=== PATIENT | female | born 1935 | race Caucasian/White ===

== ENCOUNTER 2016-10-22 13:42 | Outpatient (CLI) | payer MEDICARE ==
[2016-10-22 19:26] LABS: Hemoglobin A1c 5.5 % (4.0-6.0)
[2016-10-22 19:32] LABS: ALT (SGPT) 12 U/L (8-55); AST (SGOT) 21 U/L (5-34); Alkaline Phosphatase 92 U/L (40-150); Anion Gap 17 mmol/L (10-20); BUN (Urea Nitrogen) 37 mg/dL (9.8-20.1); Bilirubin, Direct 0.2 mg/dL (0.1-0.3); Bilirubin, Total 0.4 mg/dL (0.2-1.2); Calc. Creatinine Clearance 0 mL/min (70-130); Calcium 9.2 mg/dL (7.8-10.44); Carbon Dioxide 23 mmol/L (23-31); Cardiac Risk 3.4 (Less than 4.5); Chloride 104 mmol/L (98-107); Cholesterol 189 mg/dl (< 200 Desired); Estimated GFR-MDRD 30; Glucose 100 mg/dL (83-110); HDL Cholesterol 56 mg/dL (>60 Neg Risk); LDL Cholesterol, Calculated 114 mg/dL; Potassium 5.1 mmol/L (3.5-5.1); Protein, Total 6.9 g/dL (6.0-8.3); Sodium 139 mmol/L (136-145); Triglycerides 97 mg/dL (Less than 150)
[2016-10-22 20:21] LABS: #Basophils 0.1 thou/uL (0.0-0.2); #Eosinphils 0.2 thou/uL (0.0-0.7); #Lymphocytes 1.6 thou/uL (1.20-3.40); #Monocytes 0.4 thou/uL (0.11-0.59); #Neutrophils 2.9 thou/uL (1.40-6.50); %Basophils 1.1 % (0.0-1.0); %Eosinophils 4.5 % (0.0-10.0); %Lymphocytes 30.6 % (21.0-51.0); %Monocytes 7.8 % (0.0-10.0); Hemoglobin 11.2 g/dL (12.0-16.0); Mean Corpuscular HGB CONC 32.1 g/dL (32.0-36.0); Mean Corpuscular Hemoglobin 30.1 pg (27.0-31.0); Mean Corpuscular Volume 93.8 fl (81.0-99.0); Mean Platelet Volume 6.4 fL (7.4-10.4); Platelet Count 187 thou/uL (130-400); RBC Distribution Width 12.4 % (11.5-14.5); Red Blood Cell (RBC) Count 3.71 mill/uL (4.20-5.40); White Blood Cell (WBC) Count 5.2 thou/uL (4.8-10.8)
== END 2016-10-22 13:43 | disposition home or self-care (01) ==
LOC: NAVSJIPCSP 13:42
PROVIDERS: ATTEND Family Medicine
DX: E78.2 Mixed hyperlipidemia (principal); I50.9 Heart failure, unspecified; I10 Essential (primary) hypertension; E11.40 Type 2 diabetes mellitus with diabetic neuropathy, unspecified; N28.9 Disorder of kidney and ureter, unspecified; M54.17 Radiculopathy, lumbosacral region; M48.07 Spinal stenosis, lumbosacral region; Z79.899 Other long term (current) drug therapy
CPT/HCPCS: 36415; 80048; 80061; 80076; 83036; 84443; 85025

== ENCOUNTER → 2017-01-15 | Outpatient (CLI) | payer MEDICARE ==
--- NOTE | 2017-01-15 13:25 | RAD ---
LUMBAR SPINE SERIES THREE VIEWS: History: Right leg radiculopathy. FINDINGS: There is severe arthritic change in the spine. There is marked disc narrowing and vacuum disc phenom enon at L3-4 and L4-5. Less pronounced disc narrowing is seen at L2-3 and L5-S1 levels. Vertebroplas ty changes related to pronounced compression fracture of L1 is noted. Severe scoliotic deformity to the spine, convex to the left. Post op laminectomy changes are seen at L4. IMPRESSION: 1. Scoliosis with marked arthritic changes of the spine and post-operative changes of the spine as d iscussed above. 2. Incidental note is made of a round calcification seen in the left side of the pelvis. I am not ce rtain of the exact location of this. It has a shape that raises the possibility of a bladder calculu s. POS: OFF
== END ==
LOC: NAV RAD 10:50
PROVIDERS: ATTEND Family Medicine
DX: M54.17 Radiculopathy, lumbosacral region (principal); M47.816 Spondylosis without myelopathy or radiculopathy, lumbar region
CPT/HCPCS: 72100

== ENCOUNTER 2017-04-25 11:50 | Outpatient (CLI) | payer MEDICARE ==
--- NOTE | 2017-04-25 13:00 | RAD ---
TWO VIEWS LUMBAR SPINE: DATE: 04/25/17. HISTORY: Lumbosacral radiculopathy. COMPARISON: 01/15/17. FINDINGS: Flexion and extension views of the lumbar spine are obtained. As noted on the prior views of the lum bar spine, there are vertebroplasty changes involving a severe wedge-shaped compression fracture of t he L1 vertebral body which is stable in appearance compared to the prior study. There is exaggerated kyphosis at this level. There are mild multilevel degenerative changes in the lumbar spine with sca ttered osteophytes present. Facet degenerative changes are seen in the lumbar spine. The remaining vertebral body heights in the lumbar spine are within normal limits and no subluxation is seen on thi s exam. Vascular calcifications are seen in the abdominal aorta. IMPRESSION: 1. No evidence of a subluxation involving the lumbar spine. 2. Stable vertebroplasty changes involving a severe compression fracture of the L1 vertebral body wi th exaggerated kyphosis at this level. 3. Degenerative changes in the lumbar spine. POS: ANGELES
== END 2017-04-25 11:51 | disposition home or self-care (01) ==
LOC: NAV RAD 11:50
PROVIDERS: ATTEND Neurological Surgery
DX: M47.26 Other spondylosis with radiculopathy, lumbar region (principal); M40.295 Other kyphosis, thoracolumbar region; Z98.890 Other specified postprocedural states
CPT/HCPCS: 72100

== ENCOUNTER 2018-02-05 12:31 | Emergency (ER) | payer MEDICARE ==
--- NOTE | 2018-02-05 14:21 | CT ---
CT BRAIN: Date: 02/05/18 HISTORY: Fall, struck back of head on chair. 83-year-old female. TECHNIQUE: Noncontrast enhanced CT images of brain obtained from the base of the skull through the vertex. Brain and bone windows are obtained. FINDINGS: CT images of the brain demonstrate interval development of opacification of the right frontal sinus a nd right anterior ethmoid sinuses. This is compatible with sinusitis. A small right posterior parieta l scalp hematoma is seen. No evidence of intracranial masses, hemorrhages or strokes seen. The ventricles are of normal size. C ortical atrophy and deep white matter ischemic change is seen. IMPRESSION: No evidence of acute intracranial traumatic change is seen. Right frontal and ethmoid sinus mucosal t hickening seen. POS: H
== END 2018-02-05 13:50 | disposition home or self-care (01) ==
LOC: NAV ERS 12:31
DX: S00.03XA Contusion of scalp, initial encounter (principal); I11.0 Hypertensive heart disease with heart failure; I50.9 Heart failure, unspecified; E11.9 Type 2 diabetes mellitus without complications; E78.5 Hyperlipidemia, unspecified; F32.9 Major depressive disorder, single episode, unspecified; M19.90 Unspecified osteoarthritis, unspecified site; I25.10 Atherosclerotic heart disease of native coronary artery without angina pectoris; Z79.82 Long term (current) use of aspirin; Z79.84 Long term (current) use of oral hypoglycemic drugs; Z79.899 Other long term (current) drug therapy; W01.190A Fall on same level from slipping, tripping and stumbling with subsequent striking against furniture, initial encounter
CPT/HCPCS: 70450

== ENCOUNTER 2019-01-06 15:21 | Outpatient (CLI) | payer MEDICARE ==
--- NOTE | 2019-01-06 17:16 | ULT ---
RENAL ULTRASOUND: 01/06/19 INDICATIONS: Chronic kidney disease. Both kidneys measure approximately 8.5 cm in length. There is mild cortical thinning bilaterally. Cor tical echogenicity is upper normal. No hydronephrosis. 1 cm cyst in the superior left kidney and 0.7 cm cyst from the inferior left kidney. The bladder is empty and not evaluated. IMPRESSION: Mild cortical thinning and small left renal cyst as described. POS: OFF
== END 2019-01-06 15:22 | disposition home or self-care (01) ==
LOC: NAV ULT 15:21
PROVIDERS: ATTEND Internal Medicine Nephrology
DX: N18.4 Chronic kidney disease, stage 4 (severe) (principal); N28.1 Cyst of kidney, acquired; N28.89 Other specified disorders of kidney and ureter
CPT/HCPCS: 76770

== ENCOUNTER 2021-02-27 08:12 | Emergency (ER) | payer OTHER, MEDICARE ==
[2021-02-27] MEDS ORDERED: Boostrix 0.5 ML (Tdap) VIAL ONE (09:13)
== END 2021-02-27 09:35 | disposition home or self-care (01) ==
LOC: NAV ERS 08:12
DX: S00.83XA Contusion of other part of head, initial encounter (principal); M25.561 Pain in right knee; M25.562 Pain in left knee; I11.0 Hypertensive heart disease with heart failure; I50.9 Heart failure, unspecified; I25.10 Atherosclerotic heart disease of native coronary artery without angina pectoris; E11.9 Type 2 diabetes mellitus without complications; E78.5 Hyperlipidemia, unspecified; E78.00 Pure hypercholesterolemia, unspecified; M19.90 Unspecified osteoarthritis, unspecified site; Z79.82 Long term (current) use of aspirin; Z79.899 Other long term (current) drug therapy; W22.01XA Walked into wall, initial encounter
CPT/HCPCS: 70450; 90471; 90715

== ENCOUNTER 2021-12-21 08:07 | Outpatient (CLI) | payer MEDICARE | END 2021-12-21 08:08 | disposition home or self-care (01) | LOC: NAV RAD 08:07 | PROVIDERS: ATTEND Family Medicine | DX: M25.511 Pain in right shoulder (principal) ==

== ENCOUNTER 2022-10-21 14:35 | Inpatient (IN) | payer MEDICARE ==
[2022-10-21] MEDS ORDERED: Benzonatate 100 MG CAP PO PRN (15:58)
[2022-10-21] MEDS ORDERED: Dextrose 50% Abboject 50 ML SYRINGE SLOW IVP PRN (15:58)
[2022-10-21] MEDS ORDERED: Glucagon 1 MG/ML KIT IM PRN (15:58)
[2022-10-21] MEDS ORDERED: Sodium Chloride 0.65% Nasal 44 ML BOT EA NARE PRN (15:58)
[2022-10-21] MEDS ORDERED: Acetaminophen 650 MG Suppository PR PRN (15:58)
[2022-10-21] MEDS ORDERED: Calcium Carbonate 500 MG ChewTAB PO PRN (15:58)
[2022-10-21] MEDS ORDERED: Benzocaine/Menthol 1 LOZ LOZ PO PRN (15:58)
[2022-10-21] MEDS ORDERED: Senokot S 8.6-50 MG TAB PO PRN (15:58)
[2022-10-21] MEDS ORDERED: Bisacodyl 10 MG SUPP PR PRN (15:58)
[2022-10-21] MEDS ORDERED: Ondansetron ODT 4 MG TAB PO PRN (15:58)
[2022-10-21] MEDS ORDERED: Artificial Tear Sol 15 ML BOT EA EYE PRN (15:58)
[2022-10-21] MEDS ORDERED: Bisacodyl 5 MG TAB PO PRN (15:58)
[2022-10-21] MEDS ORDERED: Sertraline 100 MG TAB PO SCH ×2 (16:00→20:00)
[2022-10-21] MEDS: Atorvastatin Calcium 10 MG TAB PO SCH (22:03)
[2022-10-21] MEDS: Cefdinir 300 MG CAP PO SCH (22:03)
[2022-10-21] MEDS: Carvedilol 3.125 MG TAB PO SCH (22:03)
[2022-10-22 06:14] LABS: #Basophils 0.1 thou/uL (0.0-0.2); #Eosinphils 0.2 thou/uL (0.0-0.7); #Lymphocytes 1.3 thou/uL (1.20-3.40); #Monocytes 0.6 thou/uL (0.11-0.59); #Neutrophils 6.3 thou/uL (1.40-6.50); %Basophils 0.6 % (0.0-1.0); %Lymphocytes 15.3 % (21.0-51.0); %Monocytes 7.5 % (0.0-10.0); %Neutrophils 74.5 % (42.0-75.0); Hemoglobin 8.6 g/dL (12.0-16.0); Mean Corpuscular HGB CONC 33.1 g/dL (32.0-36.0); Mean Corpuscular Hemoglobin 31.5 pg (27.0-31.0); Mean Corpuscular Volume 95.1 fl (78.0-98.0); Mean Platelet Volume 6.2 fL (7.4-10.4); Platelet Count 156 10x3/uL (130-400); RBC Distribution Width 12.2 % (11.5-14.5); Red Blood Cell (RBC) Count 2.75 mill/uL (4.20-5.40); White Blood Cell (WBC) Count 8.5 10x3/uL (4.8-10.8)
[2022-10-22 06:31] LABS: ALT (SGPT) 17 U/L (8-55); AST (SGOT) 24 U/L (5-34); Albumin 3.1 g/dL (3.4-4.8); Alkaline Phosphatase 68 U/L (40-110); Anion Gap 16 mmol/L (10-20); BUN (Urea Nitrogen) 33 mg/dL (9.8-20.1); Bilirubin, Total 0.4 mg/dL (0.2-1.2); Calc. Creatinine Clearance 32 mL/min (70-130); Calcium 8.9 mg/dL (7.8-10.44); Carbon Dioxide 18 mmol/L (23-31); Chloride 108 mmol/L (98-107); Estimated GFR 26; Globulin 2.6 g/dL (2.4-3.5); Glucose 105 mg/dL (83-110); Potassium 3.8 mmol/L (3.5-5.1); Protein, Total 5.7 g/dL (5.8-8.1); Sodium 138 mmol/L (136-145)
[2022-10-22] MEDS: Aspirin 81 mg Enteric Coated Tablet PO SCH (08:17)
[2022-10-22] MEDS: Cefdinir 300 MG CAP PO SCH ×2 (08:17→21:15)
[2022-10-22] MEDS: Alogliptin 6.25 MG TAB PO SCH (08:18)
[2022-10-22] MEDS: Furosemide 40 MG TAB PO SCH (08:24)
[2022-10-22] MEDS: Carvedilol 3.125 MG TAB PO SCH ×2 (08:24→21:15)
[2022-10-22] MEDS: Losartan 25 MG TAB PO SCH (08:24)
[2022-10-22] MEDS ORDERED: Alogliptin 6.25 MG TAB PO SCH (09:00)
[2022-10-22] MEDS: Atorvastatin Calcium 10 MG TAB PO SCH (21:15)
[2022-10-23] MEDS: Cefdinir 300 MG CAP PO SCH ×2 (08:29→20:34)
[2022-10-23] MEDS: Losartan 25 MG TAB PO SCH (08:29)
[2022-10-23] MEDS: Alogliptin 6.25 MG TAB PO SCH (08:30)
[2022-10-23] MEDS: Carvedilol 3.125 MG TAB PO SCH ×2 (08:30→20:35)
[2022-10-23] MEDS: Aspirin 81 mg Enteric Coated Tablet PO SCH (08:30)
[2022-10-23] MEDS: Furosemide 40 MG TAB PO SCH (08:30)
[2022-10-23] MEDS: Sertraline 100 MG TAB PO SCH (08:57)
[2022-10-23] MEDS: Acetaminophen 325 MG TAB PO PRN (09:55)
[2022-10-23] MEDS: Atorvastatin Calcium 10 MG TAB PO SCH (20:35)
[2022-10-24] MEDS: Losartan 25 MG TAB PO SCH (09:40)
[2022-10-24] MEDS: Cefdinir 300 MG CAP PO SCH ×2 (09:40→20:53)
[2022-10-24] MEDS: Carvedilol 3.125 MG TAB PO SCH ×2 (09:41→20:53)
[2022-10-24] MEDS: Alogliptin 6.25 MG TAB PO SCH (09:41)
[2022-10-24] MEDS: Aspirin 81 mg Enteric Coated Tablet PO SCH (09:41)
[2022-10-24] MEDS: Furosemide 40 MG TAB PO SCH (09:41)
[2022-10-24] MEDS: Saccharomyces boulardii 250 MG CAP PO SCH (09:41)
[2022-10-24] MEDS: Atorvastatin Calcium 10 MG TAB PO SCH (20:53)
[2022-10-25] MEDS: Acetaminophen 325 MG TAB PO PRN ×2 (00:34→09:52)
[2022-10-25] MEDS: Saccharomyces boulardii 250 MG CAP PO SCH (09:51)
[2022-10-25] MEDS: Furosemide 40 MG TAB PO SCH (09:55)
[2022-10-25] MEDS: Alogliptin 6.25 MG TAB PO SCH (09:55)
[2022-10-25] MEDS: Losartan 25 MG TAB PO SCH (09:56)
[2022-10-25] MEDS: Carvedilol 3.125 MG TAB PO SCH ×2 (09:56→21:15)
[2022-10-25] MEDS: Aspirin 81 mg Enteric Coated Tablet PO SCH (09:56)
[2022-10-25] MEDS: Sertraline 100 MG TAB PO SCH (10:02)
[2022-10-25] MEDS ORDERED: predniSONE 20 MG TAB PO SCH (14:15)
[2022-10-25] MEDS: Atorvastatin Calcium 10 MG TAB PO SCH (21:15)
[2022-10-26] MEDS: Losartan 25 MG TAB PO SCH (09:32)
[2022-10-26] MEDS: Saccharomyces boulardii 250 MG CAP PO SCH (09:33)
[2022-10-26] MEDS: Furosemide 40 MG TAB PO SCH (09:33)
[2022-10-26] MEDS: Aspirin 81 mg Enteric Coated Tablet PO SCH (09:33)
[2022-10-26] MEDS: Carvedilol 3.125 MG TAB PO SCH ×2 (09:34→20:14)
[2022-10-26] MEDS: predniSONE 20 MG TAB PO SCH (09:34)
[2022-10-26] MEDS: Alogliptin 6.25 MG TAB PO SCH (09:35)
[2022-10-26] MEDS ORDERED: traMADol HCl 50 MG TAB PO PRN (11:26)
[2022-10-26] MEDS: HumaLOG 300 UNITS/3 ML VIAL SC PRN ×2 (12:57→17:44)
[2022-10-26] MEDS: Atorvastatin Calcium 10 MG TAB PO SCH (20:14)
[2022-10-26] MEDS: Acetaminophen 325 MG TAB PO PRN (20:14)
[2022-10-27 05:24] LABS: #Lymphocytes 1.2 thou/uL (1.20-3.40); #Monocytes 0.4 thou/uL (0.11-0.59); #Neutrophils 7.7 thou/uL (1.40-6.50); %Basophils 0.2 % (0.0-1.0); %Lymphocytes 12.5 % (21.0-51.0); %Monocytes 4.2 % (0.0-10.0); Hemoglobin 8.2 g/dL (12.0-16.0); Manual Diff?? NO; Mean Corpuscular HGB CONC 33.9 g/dL (32.0-36.0); Mean Corpuscular Hemoglobin 31.8 pg (27.0-31.0); Mean Corpuscular Volume 93.8 fl (78.0-98.0); Mean Platelet Volume 6.1 fL (7.4-10.4); Platelet Count 231 10x3/uL (130-400); RBC Distribution Width 11.9 % (11.5-14.5); Red Blood Cell (RBC) Count 2.57 mill/uL (4.20-5.40); White Blood Cell (WBC) Count 9.3 10x3/uL (4.8-10.8)
[2022-10-27 05:33] LABS: Carbon Dioxide 24 mmol/L (23-31)
[2022-10-27 05:34] LABS: Anion Gap 14 mmol/L (10-20); BUN (Urea Nitrogen) 41 mg/dL (9.8-20.1); Calc. Creatinine Clearance 33 mL/min (70-130); Calcium 9.1 mg/dL (7.8-10.44); Chloride 106 mmol/L (98-107); Estimated GFR 27; Glucose 136 mg/dL (83-110); Potassium 3.6 mmol/L (3.5-5.1); Sodium 140 mmol/L (136-145)
[2022-10-27] MEDS: Alogliptin 6.25 MG TAB PO SCH (08:56)
[2022-10-27] MEDS: predniSONE 20 MG TAB PO SCH (08:57)
[2022-10-27] MEDS: Saccharomyces boulardii 250 MG CAP PO SCH (08:57)
[2022-10-27] MEDS: Carvedilol 3.125 MG TAB PO SCH ×2 (08:57→20:44)
[2022-10-27] MEDS: Furosemide 40 MG TAB PO SCH (08:58)
[2022-10-27] MEDS: Losartan 25 MG TAB PO SCH (08:58)
[2022-10-27] MEDS: Aspirin 81 mg Enteric Coated Tablet PO SCH (08:58)
[2022-10-27] MEDS: Sertraline 100 MG TAB PO SCH (09:01)
[2022-10-27] MEDS: HumaLOG 300 UNITS/3 ML VIAL SC PRN (17:03)
[2022-10-27] MEDS: Acetaminophen 325 MG TAB PO PRN (20:42)
[2022-10-27] MEDS: Atorvastatin Calcium 10 MG TAB PO SCH (20:42)
[2022-10-28] MEDS: predniSONE 20 MG TAB PO SCH (08:54)
[2022-10-28] MEDS: Saccharomyces boulardii 250 MG CAP PO SCH (08:55)
[2022-10-28] MEDS: Aspirin 81 mg Enteric Coated Tablet PO SCH (08:55)
[2022-10-28] MEDS: Carvedilol 3.125 MG TAB PO SCH ×2 (08:55→20:31)
[2022-10-28] MEDS: Furosemide 40 MG TAB PO SCH (08:56)
[2022-10-28] MEDS: Alogliptin 6.25 MG TAB PO SCH (08:56)
[2022-10-28 09:04] LABS: #Lymphocytes 2.2 thou/uL (1.20-3.40); #Monocytes 0.5 thou/uL (0.11-0.59); %Basophils 0.5 % (0.0-1.0); %Eosinophils 0.1 % (0.0-10.0); %Monocytes 5.6 % (0.0-10.0); %Neutrophils 68.8 % (42.0-75.0); Mean Corpuscular HGB CONC 32.7 g/dL (32.0-36.0); Mean Corpuscular Hemoglobin 30.9 pg (27.0-31.0); Mean Corpuscular Volume 94.4 fl (78.0-98.0); Mean Platelet Volume 5.9 fL (7.4-10.4); Platelet Count 295 10x3/uL (130-400); Red Blood Cell (RBC) Count 2.91 mill/uL (4.20-5.40); White Blood Cell (WBC) Count 8.8 10x3/uL (4.8-10.8)
[2022-10-28 09:17] LABS: Anion Gap 12 mmol/L (10-20); BUN (Urea Nitrogen) 47 mg/dL (9.8-20.1); Calc. Creatinine Clearance 32 mL/min (70-130); Calcium 9.2 mg/dL (7.8-10.44); Carbon Dioxide 29 mmol/L (23-31); Chloride 101 mmol/L (98-107); Estimated GFR 26; Glucose 118 mg/dL (83-110); Potassium 3.3 mmol/L (3.5-5.1); Sodium 139 mmol/L (136-145)
[2022-10-28] MEDS ORDERED: Losartan Potassium 50 MG TAB PO SCH (10:15)
[2022-10-28] MEDS: Losartan 25 MG TAB PO SCH (10:27)
[2022-10-28] MEDS: Acetaminophen 325 MG TAB PO PRN ×2 (11:49→20:30)
[2022-10-28] MEDS: HumaLOG 300 UNITS/3 ML VIAL SC PRN ×2 (12:39→17:14)
[2022-10-28] MEDS: Atorvastatin Calcium 10 MG TAB PO SCH (20:31)
[2022-10-29] MEDS: predniSONE 20 MG TAB PO SCH (08:59)
[2022-10-29] MEDS: Sertraline 100 MG TAB PO SCH (09:00)
[2022-10-29] MEDS: Aspirin 81 mg Enteric Coated Tablet PO SCH (09:00)
[2022-10-29] MEDS: Losartan Potassium 50 MG TAB PO SCH (09:00)
[2022-10-29] MEDS: Alogliptin 6.25 MG TAB PO SCH (09:00)
[2022-10-29] MEDS: Furosemide 40 MG TAB PO SCH (09:00)
[2022-10-29] MEDS: Carvedilol 3.125 MG TAB PO SCH ×2 (09:00→20:23)
[2022-10-29] MEDS: Saccharomyces boulardii 250 MG CAP PO SCH (09:00)
[2022-10-29] MEDS: HumaLOG 300 UNITS/3 ML VIAL SC PRN (17:08)
[2022-10-29] MEDS: Atorvastatin Calcium 10 MG TAB PO SCH (20:22)
[2022-10-29] MEDS: Acetaminophen 325 MG TAB PO PRN (20:23)
[2022-10-30] MEDS: Saccharomyces boulardii 250 MG CAP PO SCH (08:50)
[2022-10-30] MEDS: Carvedilol 3.125 MG TAB PO SCH ×2 (08:50→21:04)
[2022-10-30] MEDS: Alogliptin 6.25 MG TAB PO SCH (08:50)
[2022-10-30] MEDS: predniSONE 20 MG TAB PO SCH (08:51)
[2022-10-30] MEDS: Losartan Potassium 50 MG TAB PO SCH (08:51)
[2022-10-30] MEDS: Furosemide 40 MG TAB PO SCH (08:52)
[2022-10-30] MEDS: Aspirin 81 mg Enteric Coated Tablet PO SCH (08:52)
[2022-10-30] MEDS: HumaLOG 300 UNITS/3 ML VIAL SC PRN (17:19)
[2022-10-30] MEDS: Atorvastatin Calcium 10 MG TAB PO SCH (21:04)
[2022-10-30] MEDS: Acetaminophen 325 MG TAB PO PRN (21:04)
[2022-10-31] MEDS: Carvedilol 3.125 MG TAB PO SCH ×2 (08:01→21:02)
[2022-10-31] MEDS: Losartan Potassium 50 MG TAB PO SCH (08:01)
[2022-10-31] MEDS: Furosemide 40 MG TAB PO SCH (08:01)
[2022-10-31] MEDS: Aspirin 81 mg Enteric Coated Tablet PO SCH (08:01)
[2022-10-31] MEDS: Alogliptin 6.25 MG TAB PO SCH (08:01)
[2022-10-31] MEDS: Saccharomyces boulardii 250 MG CAP PO SCH (08:01)
[2022-10-31] MEDS: Sertraline 100 MG TAB PO SCH (08:04)
[2022-10-31] MEDS: Acetaminophen 325 MG TAB PO PRN (15:27)
[2022-10-31] MEDS: Atorvastatin Calcium 10 MG TAB PO SCH (21:02)
[2022-11-01] MEDS: Acetaminophen 325 MG TAB PO PRN ×2 (03:44→10:01)
[2022-11-01] MEDS: Saccharomyces boulardii 250 MG CAP PO SCH (09:11)
[2022-11-01] MEDS: Alogliptin 6.25 MG TAB PO SCH (09:11)
[2022-11-01] MEDS: Furosemide 40 MG TAB PO SCH (09:11)
[2022-11-01] MEDS: Aspirin 81 mg Enteric Coated Tablet PO SCH (09:11)
[2022-11-01] MEDS: Losartan Potassium 50 MG TAB PO SCH (09:11)
[2022-11-01] MEDS: Carvedilol 3.125 MG TAB PO SCH ×2 (09:11→20:52)
[2022-11-01] MEDS ORDERED: HumaLOG 300 UNITS/3 ML VIAL SC PRN (20:00)
[2022-11-01] MEDS: Atorvastatin Calcium 10 MG TAB PO SCH (20:52)
[2022-11-02] MEDS: Carvedilol 3.125 MG TAB PO SCH ×2 (09:58→20:53)
[2022-11-02] MEDS: Acetaminophen 325 MG TAB PO PRN (09:58)
[2022-11-02] MEDS: Alogliptin 6.25 MG TAB PO SCH (09:58)
[2022-11-02] MEDS: Aspirin 81 mg Enteric Coated Tablet PO SCH (09:59)
[2022-11-02] MEDS: Furosemide 40 MG TAB PO SCH (10:00)
[2022-11-02] MEDS: Losartan Potassium 50 MG TAB PO SCH (10:00)
[2022-11-02] MEDS: Saccharomyces boulardii 250 MG CAP PO SCH (10:00)
[2022-11-02] MEDS: Sertraline 100 MG TAB PO SCH (10:09)
[2022-11-02] MEDS: Atorvastatin Calcium 10 MG TAB PO SCH (20:53)
[2022-11-03 05:29] LABS: #Basophils 0.1 thou/uL (0.0-0.2); #Eosinphils 0.2 thou/uL (0.0-0.7); #Lymphocytes 2.1 thou/uL (1.20-3.40); #Monocytes 0.5 thou/uL (0.11-0.59); #Neutrophils 3.8 thou/uL (1.40-6.50); %Basophils 0.8 % (0.0-1.0); %Lymphocytes 31.3 % (21.0-51.0); %Monocytes 7.2 % (0.0-10.0); %Neutrophils 57.7 % (42.0-75.0); Mean Corpuscular HGB CONC 32.8 g/dL (32.0-36.0); Mean Corpuscular Hemoglobin 31.2 pg (27.0-31.0); Mean Corpuscular Volume 95.1 fl (78.0-98.0); Mean Platelet Volume 6.8 fL (7.4-10.4); Platelet Count 196 10x3/uL (130-400); RBC Distribution Width 12.4 % (11.5-14.5); Red Blood Cell (RBC) Count 2.89 mill/uL (4.20-5.40); White Blood Cell (WBC) Count 6.6 10x3/uL (4.8-10.8)
[2022-11-03 05:47] LABS: Anion Gap 12 mmol/L (10-20); BUN (Urea Nitrogen) 51 mg/dL (9.8-20.1); Calc. Creatinine Clearance 24 mL/min (70-130); Calcium 8.7 mg/dL (7.8-10.44); Carbon Dioxide 30 mmol/L (23-31); Chloride 104 mmol/L (98-107); Estimated GFR 19; Glucose 121 mg/dL (83-110); Magnesium 1.8 mg/dL (1.6-2.6); Potassium 3.7 mmol/L (3.5-5.1); Sodium 142 mmol/L (136-145)
[2022-11-03] MEDS: Furosemide 40 MG TAB PO SCH (09:26)
[2022-11-03] MEDS: Alogliptin 6.25 MG TAB PO SCH (09:27)
[2022-11-03] MEDS: Saccharomyces boulardii 250 MG CAP PO SCH (09:27)
[2022-11-03] MEDS: Carvedilol 3.125 MG TAB PO SCH ×2 (09:27→20:28)
[2022-11-03] MEDS: Losartan Potassium 50 MG TAB PO SCH (09:27)
[2022-11-03] MEDS: Aspirin 81 mg Enteric Coated Tablet PO SCH (09:27)
[2022-11-03] MEDS: Potassium Chloride 20 MEQ TAB PO SCH (09:33)
[2022-11-03] MEDS: Acetaminophen 325 MG TAB PO PRN (09:34)
[2022-11-03] MEDS: Atorvastatin Calcium 10 MG TAB PO SCH (20:26)
[2022-11-04 05:49] LABS: #Eosinphils 0.2 thou/uL (0.0-0.7); #Lymphocytes 1.7 thou/uL (1.20-3.40); #Monocytes 0.4 thou/uL (0.11-0.59); #Neutrophils 3.3 thou/uL (1.40-6.50); %Basophils 0.8 % (0.0-1.0); %Eosinophils 3.7 % (0.0-10.0); %Lymphocytes 29.4 % (21.0-51.0); %Monocytes 7.3 % (0.0-10.0); %Neutrophils 58.8 % (42.0-75.0); Hemoglobin 8.5 g/dL (12.0-16.0); Mean Corpuscular HGB CONC 33.2 g/dL (32.0-36.0); Mean Corpuscular Hemoglobin 31.7 pg (27.0-31.0); Mean Corpuscular Volume 95.3 fl (78.0-98.0); Mean Platelet Volume 6.4 fL (7.4-10.4); Platelet Count 172 10x3/uL (130-400); RBC Distribution Width 12.4 % (11.5-14.5); White Blood Cell (WBC) Count 5.6 10x3/uL (4.8-10.8)
[2022-11-04 06:01] LABS: Anion Gap 12 mmol/L (10-20); BUN (Urea Nitrogen) 45 mg/dL (9.8-20.1); Calc. Creatinine Clearance 26 mL/min (70-130); Calcium 8.8 mg/dL (7.8-10.44); Carbon Dioxide 28 mmol/L (23-31); Chloride 103 mmol/L (98-107); Estimated GFR 21; Glucose 116 mg/dL (83-110); Sodium 139 mmol/L (136-145)
[2022-11-04] MEDS: Saccharomyces boulardii 250 MG CAP PO SCH (08:42)
[2022-11-04] MEDS: Carvedilol 3.125 MG TAB PO SCH ×2 (08:42→20:54)
[2022-11-04] MEDS: Losartan Potassium 50 MG TAB PO SCH (08:43)
[2022-11-04] MEDS: Furosemide 40 MG TAB PO SCH (08:43)
[2022-11-04] MEDS: Alogliptin 6.25 MG TAB PO SCH (08:43)
[2022-11-04] MEDS: Sertraline 100 MG TAB PO SCH (08:43)
[2022-11-04] MEDS: Potassium Chloride 20 MEQ TAB PO SCH (08:44)
[2022-11-04] MEDS: Aspirin 81 mg Enteric Coated Tablet PO SCH (08:44)
[2022-11-04] MEDS: Acetaminophen 325 MG TAB PO PRN ×2 (08:44→16:41)
[2022-11-04 16:45] VITALS: BMI 31.6
[2022-11-04] MEDS: Atorvastatin Calcium 10 MG TAB PO SCH (20:54)
[2022-11-05] MEDS: Acetaminophen 325 MG TAB PO PRN ×2 (07:51→14:31)
[2022-11-05] MEDS: Carvedilol 3.125 MG TAB PO SCH ×2 (09:40→21:14)
[2022-11-05] MEDS: Saccharomyces boulardii 250 MG CAP PO SCH (09:40)
[2022-11-05] MEDS: Aspirin 81 mg Enteric Coated Tablet PO SCH (09:40)
[2022-11-05] MEDS: Losartan Potassium 50 MG TAB PO SCH (09:40)
[2022-11-05] MEDS: Alogliptin 6.25 MG TAB PO SCH (09:41)
[2022-11-05] MEDS: Furosemide 40 MG TAB PO SCH (09:41)
[2022-11-05] MEDS: Atorvastatin Calcium 10 MG TAB PO SCH (21:14)
[2022-11-06] MEDS: Saccharomyces boulardii 250 MG CAP PO SCH (09:12)
[2022-11-06] MEDS: Furosemide 40 MG TAB PO SCH (09:13)
[2022-11-06] MEDS: Aspirin 81 mg Enteric Coated Tablet PO SCH (09:13)
[2022-11-06] MEDS: Alogliptin 6.25 MG TAB PO SCH (09:13)
[2022-11-06] MEDS: Losartan Potassium 50 MG TAB PO SCH (09:13)
[2022-11-06] MEDS: Carvedilol 3.125 MG TAB PO SCH ×2 (09:14→21:33)
[2022-11-06] MEDS: Sertraline 100 MG TAB PO SCH (09:16)
[2022-11-06] MEDS: Acetaminophen 325 MG TAB PO PRN (12:13)
[2022-11-06] MEDS: Atorvastatin Calcium 10 MG TAB PO SCH (21:33)
[2022-11-07] MEDS: Furosemide 40 MG TAB PO SCH (09:22)
[2022-11-07] MEDS: Saccharomyces boulardii 250 MG CAP PO SCH (09:22)
[2022-11-07] MEDS: Aspirin 81 mg Enteric Coated Tablet PO SCH (09:23)
[2022-11-07] MEDS: Alogliptin 6.25 MG TAB PO SCH (09:23)
[2022-11-07] MEDS: Carvedilol 3.125 MG TAB PO SCH (09:23)
[2022-11-07] MEDS: Losartan Potassium 50 MG TAB PO SCH (09:23)
[2022-11-07 09:45] VITALS: BP 119/69; TEMP 98.7
== END 2022-11-07 13:50 | disposition home health service (06) | DRG 560 ==
LOC: NAV ACUTE 17:45
PROVIDERS: ADMIT Family Medicine; ATTEND Family Medicine
DX: S32.029D Unspecified fracture of second lumbar vertebra, subsequent encounter for fracture with routine healing (principal); I13.0 Hypertensive heart and chronic kidney disease with heart failure and stage 1 through stage 4 chronic kidney disease, or unspecified chronic kidney disease; I50.32 Chronic diastolic (congestive) heart failure; N18.4 Chronic kidney disease, stage 4 (severe); R53.1 Weakness; I25.10 Atherosclerotic heart disease of native coronary artery without angina pectoris; E78.5 Hyperlipidemia, unspecified; R55 Syncope and collapse; E11.65 Type 2 diabetes mellitus with hyperglycemia; R19.7 Diarrhea, unspecified; M10.9 Gout, unspecified; E11.22 Type 2 diabetes mellitus with diabetic chronic kidney disease; Z88.0 Allergy status to penicillin; Z88.8 Allergy status to other drugs, medicaments and biological substances; Z79.82 Long term (current) use of aspirin; Z90.710 Acquired absence of both cervix and uterus; Z98.890 Other specified postprocedural states; Z90.49 Acquired absence of other specified parts of digestive tract; Z79.899 Other long term (current) drug therapy
CPT/HCPCS: 36415; 36416; 72100; 72131; 80048; 80053; 83735; 84550; 85025; 85652; 86140; J1650; J1815; J7512

== ENCOUNTER 2023-03-10 12:51 | Inpatient (IN) | payer MEDICARE ==
[2023-03-10 13:21] LABS: #Eosinphils 0.1 thou/uL (0.0-0.7); #Lymphocytes 1.6 thou/uL (1.20-3.40); #Monocytes 0.5 thou/uL (0.11-0.59); #Neutrophils 2.3 thou/uL (1.40-6.50); %Eosinophils 1.3 % (0.0-10.0); %Lymphocytes 36.1 % (21.0-51.0); %Monocytes 10.3 % (0.0-10.0); %Neutrophils 51.3 % (42.0-75.0); Hemoglobin 10.2 g/dL (12.0-16.0); Mean Corpuscular Hemoglobin 31.7 pg (27.0-31.0); Mean Corpuscular Volume 96.2 fl (78.0-98.0); Mean Platelet Volume 7.2 fL (7.4-10.4); Platelet Count 134 10x3/uL (130-400); RBC Distribution Width 12.7 % (11.5-14.5); Red Blood Cell (RBC) Count 3.22 mill/uL (4.20-5.40); White Blood Cell (WBC) Count 4.5 10x3/uL (4.8-10.8)
[2023-03-10 13:47] LABS: Troponin I 0.075 ng/mL (< 0.028)
[2023-03-10 13:49] LABS: ALT (SGPT) 25 U/L (8-55); AST (SGOT) 47 U/L (5-34); Albumin 3.6 g/dL (3.4-4.8); Alkaline Phosphatase 75 U/L (40-110); Anion Gap 17 mmol/L (10-20); BUN (Urea Nitrogen) 35 mg/dL (9.8-20.1); Bilirubin, Total 0.4 mg/dL (0.2-1.2); Calc. Creatinine Clearance 0 mL/min (70-130); Calcium 8.7 mg/dL (7.8-10.44); Carbon Dioxide 23 mmol/L (23-31); Chloride 98 mmol/L (98-107); Estimated GFR 20; Globulin 2.5 g/dL (2.4-3.5); Glucose 118 mg/dL (83-110); Potassium 4.1 mmol/L (3.5-5.1); Protein, Total 6.1 g/dL (5.8-8.1); Sodium 134 mmol/L (136-145)
[2023-03-10 14:22] LABS: SARS-CoV-2 NAA Rapid Test DETECTED (NotDetected)
[2023-03-10 15:08] LABS: Bilirubin Negative (Negative); Blood, Urine Trace (Negative); Glucose, Urine (Dipstick) Negative (Negative); Ketone, Urine Negative (Negative); Leukocyte Negative (Negative); Nitrite Negative (Negative); Protein, Urine (Dipstick) Negative (Neg-Trace); Specific Gravity, Urine 1.015 (1.005-1.030); Urobilinogen 0.2 mg/dL (Less than 2); pH, Urine 5.5 (5.0-9.0)
[2023-03-10 15:10] LABS: Clarity Hazy (Clear)
[2023-03-10 15:15] LABS: CAUTI Indications for Culture Alt mental st,lethar; RBC/HPF 0-3 HPF (0-3); Squamous Epithelial 0-3 HPF (0-3); WBC/HPF None Seen HPF (0-3)
[2023-03-10 15:16] LABS: Urine Culture Reflex No No
[2023-03-10] MEDS ORDERED: Sodium Chloride 0.9% 1,000 ML ONE (16:30)
[2023-03-10] MEDS ORDERED: Benzocaine/Menthol 1 LOZ LOZ PO PRN (18:32)
[2023-03-10] MEDS ORDERED: Acetaminophen 325 MG TAB PO PRN (18:32)
[2023-03-10] MEDS ORDERED: Artificial Tear Sol 15 ML BOT EA EYE PRN (18:32)
[2023-03-10] MEDS ORDERED: cloNIDine 0.1 MG TAB PO PRN (18:32)
[2023-03-10] MEDS ORDERED: Calcium Carbonate 500 MG ChewTAB PO PRN (18:32)
[2023-03-10] MEDS ORDERED: Acetaminophen 650 MG Suppository PR PRN (18:32)
[2023-03-10] MEDS ORDERED: Sodium Chloride 0.65% Nasal 44 ML BOT EA NARE PRN (18:32)
[2023-03-10] MEDS ORDERED: Guaifenesin DM 100-10/5 ML UDCUP PO PRN (18:32)
[2023-03-10] MEDS ORDERED: Bisacodyl 10 MG SUPP PR PRN (18:32)
[2023-03-10] MEDS ORDERED: Benzonatate 100 MG CAP PO PRN (18:32)
[2023-03-10] MEDS ORDERED: Senokot S 8.6-50 MG TAB PO PRN (18:32)
[2023-03-10] MEDS ORDERED: Ondansetron ODT 4 MG TAB PO PRN (18:32)
[2023-03-10] MEDS ORDERED: Bisacodyl 5 MG TAB PO PRN (18:32)
[2023-03-10] MEDS ORDERED: Glucagon 1 MG/ML KIT IM PRN (18:38)
[2023-03-10] MEDS ORDERED: Dextrose 50% Abboject 50 ML SYRINGE SLOW IVP PRN (18:38)
[2023-03-10] MEDS ORDERED: HumaLOG 300 UNITS/3 ML VIAL SC PRN (18:38)
[2023-03-10] MEDS ORDERED: Sertraline 100 MG TAB PO SCH (18:45)
[2023-03-10] MEDS: Carvedilol 3.125 MG TAB PO SCH (20:26)
[2023-03-10] MEDS: Famotidine 20 MG TAB PO SCH (20:26)
[2023-03-11 05:26] LABS: #Eosinphils 0.1 thou/uL (0.0-0.7); #Lymphocytes 2.1 thou/uL (1.20-3.40); #Monocytes 0.4 thou/uL (0.11-0.59); #Neutrophils 1.1 thou/uL (1.40-6.50); %Eosinophils 3.7 % (0.0-10.0); %Lymphocytes 56.2 % (21.0-51.0); %Monocytes 9.5 % (0.0-10.0); %Neutrophils 29.6 % (42.0-75.0); Hematocrit 27.4 % (36.0-47.0); Hemoglobin 9.1 g/dL (12.0-16.0); Mean Corpuscular Hemoglobin 31.5 pg (27.0-31.0); Mean Corpuscular Volume 95.3 fl (78.0-98.0); Mean Platelet Volume 8.8 fL (7.4-10.4); Platelet Count 121 10x3/uL (130-400); RBC Distribution Width 12.6 % (11.5-14.5); Red Blood Cell (RBC) Count 2.88 mill/uL (4.20-5.40); White Blood Cell (WBC) Count 3.8 10x3/uL (4.8-10.8)
[2023-03-11 05:37] LABS: Anion Gap 13 mmol/L (10-20); BUN (Urea Nitrogen) 31 mg/dL (9.8-20.1); Calc. Creatinine Clearance 28 mL/min (70-130); Calcium 8.2 mg/dL (7.8-10.44); Carbon Dioxide 24 mmol/L (23-31); Chloride 104 mmol/L (98-107); Estimated GFR 26; Glucose 89 mg/dL (83-110); Potassium 3.9 mmol/L (3.5-5.1); Sodium 137 mmol/L (136-145)
[2023-03-11] MEDS: Losartan 25 MG TAB PO SCH (08:10)
[2023-03-11] MEDS: Carvedilol 3.125 MG TAB PO SCH ×2 (08:11→21:10)
[2023-03-11] MEDS: Alogliptin 6.25 MG TAB PO SCH (08:11)
[2023-03-11] MEDS: Aspirin 81 mg Enteric Coated Tablet PO SCH (08:11)
[2023-03-11] MEDS ORDERED: FLU VACC QS2023(65UP)/MF59C/PF 60 MCG/0.5 ML SYRINGE IM ONE (09:00)
[2023-03-11] MEDS ORDERED: Furosemide 40 MG TAB PO SCH (09:00)
[2023-03-11] MEDS: Famotidine 20 MG TAB PO SCH (21:10)
[2023-03-12 06:00] LABS: Hematocrit 27.3 % (36.0-47.0); Mean Corpuscular HGB CONC 32.9 g/dL (32.0-36.0); Mean Corpuscular Hemoglobin 31.2 pg (27.0-31.0); Mean Corpuscular Volume 95.1 fl (78.0-98.0); Platelet Count 109 10x3/uL (130-400); RBC Distribution Width 12.5 % (11.5-14.5); Red Blood Cell (RBC) Count 2.87 mill/uL (4.20-5.40); White Blood Cell (WBC) Count 4.2 10x3/uL (4.8-10.8)
[2023-03-12 06:01] LABS: #Lymphocytes 2.3 thou/uL (1.20-3.40); #Neutrophils 1.3 thou/uL (1.40-6.50); %Basophils 0.6 % (0.0-1.0); %Eosinophils 5.8 % (0.0-10.0); %Lymphocytes 53.9 % (21.0-51.0); %Monocytes 9.1 % (0.0-10.0); %Neutrophils 30.6 % (42.0-75.0)
[2023-03-12 06:02] LABS: #Eosinphils 0.2 thou/uL (0.0-0.7); #Monocytes 0.4 thou/uL (0.11-0.59)
[2023-03-12 06:09] LABS: Anion Gap 12 mmol/L (10-20); BUN (Urea Nitrogen) 29 mg/dL (9.8-20.1); Calc. Creatinine Clearance 28 mL/min (70-130); Calcium 8.4 mg/dL (7.8-10.44); Carbon Dioxide 24 mmol/L (23-31); Chloride 104 mmol/L (98-107); Estimated GFR 26; Glucose 89 mg/dL (83-110); Potassium 3.8 mmol/L (3.5-5.1); Sodium 136 mmol/L (136-145)
[2023-03-12 06:46] VITALS: BMI 31.0
[2023-03-12] MEDS: Aspirin 81 mg Enteric Coated Tablet PO SCH (07:52)
[2023-03-12] MEDS: Losartan 25 MG TAB PO SCH (07:52)
[2023-03-12] MEDS: Alogliptin 6.25 MG TAB PO SCH (07:53)
[2023-03-12] MEDS: Carvedilol 3.125 MG TAB PO SCH (07:53)
[2023-03-12] MEDS ORDERED: Furosemide 20 MG TAB PO SCH (09:00)
[2023-03-12 11:47] VITALS: BP 105/59; TEMP 97.3
[2023-03-13] MEDS ORDERED: FLU VACC QS2023(65UP)/MF59C/PF 60 MCG/0.5 ML SYRINGE IM ONE (09:00)
== END 2023-03-12 15:51 | disposition swing bed (61) | DRG 178 ==
LOC: NAV ERS 12:51 → NAV ACUTE 16:51
PROVIDERS: ADMIT Family Medicine; ATTEND Family Medicine
PROC: 8E0ZXY6 Isolation (ICD-10-PCS; principal; 2023-03-10)
DX: U07.1 COVID-19 (principal); N17.9 Acute kidney failure, unspecified; I50.9 Heart failure, unspecified; I25.10 Atherosclerotic heart disease of native coronary artery without angina pectoris; E11.9 Type 2 diabetes mellitus without complications; E78.00 Pure hypercholesterolemia, unspecified; M19.90 Unspecified osteoarthritis, unspecified site; F32.A Depression, unspecified; E86.0 Dehydration; I95.9 Hypotension, unspecified; I11.0 Hypertensive heart disease with heart failure; Z90.49 Acquired absence of other specified parts of digestive tract; Z90.710 Acquired absence of both cervix and uterus; Z98.890 Other specified postprocedural states; Z88.0 Allergy status to penicillin; Z88.8 Allergy status to other drugs, medicaments and biological substances; Z79.82 Long term (current) use of aspirin; Z79.899 Other long term (current) drug therapy
CPT/HCPCS: 36415; 36416; 71045; 80048; 80053; 81001; 84484; 85025; 93005; J1650; J7050

== ENCOUNTER 2023-03-12 12:35 | Inpatient (IN) | payer MEDICARE ==
[2023-03-12] MEDS ORDERED: Bisacodyl 5 MG TAB PO PRN (14:47)
[2023-03-12] MEDS ORDERED: Sodium Chloride 0.65% Nasal 44 ML BOT EA NARE PRN (14:47)
[2023-03-12] MEDS ORDERED: Benzocaine/Menthol 1 LOZ LOZ PO PRN (14:47)
[2023-03-12] MEDS ORDERED: Bisacodyl 10 MG SUPP PR PRN (14:47)
[2023-03-12] MEDS ORDERED: Guaifenesin DM 100-10/5 ML UDCUP PO PRN (14:47)
[2023-03-12] MEDS ORDERED: Ondansetron ODT 4 MG TAB PO PRN (14:47)
[2023-03-12] MEDS ORDERED: Dextrose 50% Abboject 50 ML SYRINGE SLOW IVP PRN (14:47)
[2023-03-12] MEDS ORDERED: HumaLOG 300 UNITS/3 ML VIAL SC PRN (14:47)
[2023-03-12] MEDS ORDERED: Calcium Carbonate 500 MG ChewTAB PO PRN (14:47)
[2023-03-12] MEDS ORDERED: Artificial Tear Sol 15 ML BOT EA EYE PRN (14:47)
[2023-03-12] MEDS ORDERED: Promethazine HCl 25 MG SUPP PR PRN (14:47)
[2023-03-12] MEDS ORDERED: Acetaminophen 325 MG TAB PO PRN (14:47)
[2023-03-12] MEDS ORDERED: Glucagon 1 MG/ML KIT IM PRN (14:47)
[2023-03-12] MEDS ORDERED: cloNIDine 0.1 MG TAB PO PRN (14:47)
[2023-03-12] MEDS ORDERED: Acetaminophen 650 MG Suppository PR PRN (14:47)
[2023-03-12] MEDS ORDERED: Senokot S 8.6-50 MG TAB PO PRN (14:47)
[2023-03-12] MEDS ORDERED: Benzonatate 100 MG CAP PO PRN (14:47)
[2023-03-12] MEDS ORDERED: Sertraline 100 MG TAB PO SCH ×2 (15:00→16:30)
[2023-03-12 16:54] VITALS: BMI 29.6
[2023-03-12] MEDS: Atorvastatin Calcium 10 MG TAB PO SCH (20:58)
[2023-03-12] MEDS: Famotidine 20 MG TAB PO SCH (20:58)
[2023-03-12] MEDS: Carvedilol 3.125 MG TAB PO SCH (21:01)
[2023-03-13 05:57] LABS: Hematocrit 27.2 % (36.0-47.0); Hemoglobin 8.9 g/dL (12.0-16.0); Red Blood Cell (RBC) Count 2.87 mill/uL (4.20-5.40); White Blood Cell (WBC) Count 3.5 10x3/uL (4.8-10.8)
[2023-03-13 05:58] LABS: #Eosinphils 0.2 thou/uL (0.0-0.7); #Lymphocytes 1.9 thou/uL (1.20-3.40); #Monocytes 0.3 thou/uL (0.11-0.59); %Basophils 0.3 % (0.0-1.0); %Eosinophils 7.2 % (0.0-10.0); %Lymphocytes 55.2 % (21.0-51.0); %Monocytes 9.5 % (0.0-10.0); %Neutrophils 27.8 % (42.0-75.0); Manual Diff?? NO; Mean Corpuscular HGB CONC 32.6 g/dL (32.0-36.0); Mean Platelet Volume 6.8 fL (7.4-10.4); Platelet Count 110 10x3/uL (130-400); RBC Distribution Width 12.4 % (11.5-14.5)
[2023-03-13 06:11] LABS: ALT (SGPT) 19 U/L (8-55); AST (SGOT) 31 U/L (5-34); Albumin 3.1 g/dL (3.4-4.8); Alkaline Phosphatase 55 U/L (40-110); Anion Gap 12 mmol/L (10-20); BUN (Urea Nitrogen) 27 mg/dL (9.8-20.1); Bilirubin, Total 0.3 mg/dL (0.2-1.2); Calc. Creatinine Clearance 29 mL/min (70-130); Calcium 8.7 mg/dL (7.8-10.44); Carbon Dioxide 25 mmol/L (23-31); Chloride 105 mmol/L (98-107); Estimated GFR 28; Globulin 2.3 g/dL (2.4-3.5); Glucose 93 mg/dL (83-110); Potassium 4.1 mmol/L (3.5-5.1); Protein, Total 5.4 g/dL (5.8-8.1); Sodium 138 mmol/L (136-145)
[2023-03-13] MEDS: Sertraline 100 MG TAB PO SCH (08:58)
[2023-03-13] MEDS: Aspirin 81 mg Enteric Coated Tablet PO SCH (08:58)
[2023-03-13] MEDS: Furosemide 40 MG TAB PO SCH (08:59)
[2023-03-13] MEDS: Losartan 25 MG TAB PO SCH (08:59)
[2023-03-13] MEDS: Alogliptin 6.25 MG TAB PO SCH (08:59)
[2023-03-13] MEDS: Carvedilol 3.125 MG TAB PO SCH ×3 (09:00→21:31)
[2023-03-13] MEDS: Atorvastatin Calcium 10 MG TAB PO SCH (20:46)
[2023-03-13] MEDS: Famotidine 20 MG TAB PO SCH (20:47)
[2023-03-14] MEDS: Sertraline 100 MG TAB PO SCH (08:30)
[2023-03-14] MEDS: Carvedilol 3.125 MG TAB PO SCH (08:30)
[2023-03-14] MEDS: Aspirin 81 mg Enteric Coated Tablet PO SCH (08:30)
[2023-03-14] MEDS: Losartan 25 MG TAB PO SCH (08:30)
[2023-03-14] MEDS: Alogliptin 6.25 MG TAB PO SCH (08:31)
[2023-03-14] MEDS: Furosemide 40 MG TAB PO SCH (08:31)
[2023-03-14] MEDS: Atorvastatin Calcium 10 MG TAB PO SCH (20:50)
[2023-03-14] MEDS: Famotidine 20 MG TAB PO SCH (20:50)
[2023-03-15] MEDS: Carvedilol 3.125 MG TAB PO SCH ×3 (01:46→21:20)
[2023-03-15] MEDS: Furosemide 40 MG TAB PO SCH (08:36)
[2023-03-15] MEDS: Alogliptin 6.25 MG TAB PO SCH (08:36)
[2023-03-15] MEDS: Aspirin 81 mg Enteric Coated Tablet PO SCH (08:37)
[2023-03-15] MEDS: Sertraline 100 MG TAB PO SCH (08:37)
[2023-03-15] MEDS ORDERED: Losartan 25 MG TAB PO SCH (09:00)
[2023-03-15] MEDS: Atorvastatin Calcium 10 MG TAB PO SCH (21:20)
[2023-03-15] MEDS: Famotidine 20 MG TAB PO SCH (21:20)
[2023-03-16 05:24] LABS: %Eosinophils 6.1 % (0.0-10.0); %Lymphocytes 41.1 % (21.0-51.0); %Monocytes 9.8 % (0.0-10.0); %Neutrophils 42.1 % (42.0-75.0); Hematocrit 24.3 % (36.0-47.0); Manual Diff?? NO; Mean Corpuscular Hemoglobin 31.3 pg (27.0-31.0); Mean Platelet Volume 7.1 fL (7.4-10.4); Platelet Count 130 10x3/uL (130-400); RBC Distribution Width 12.6 % (11.5-14.5); Red Blood Cell (RBC) Count 2.56 mill/uL (4.20-5.40); White Blood Cell (WBC) Count 5.1 10x3/uL (4.8-10.8)
[2023-03-16 05:25] LABS: #Eosinphils 0.3 thou/uL (0.0-0.7); #Lymphocytes 2.1 thou/uL (1.20-3.40); #Monocytes 0.5 thou/uL (0.11-0.59); #Neutrophils 2.1 thou/uL (1.40-6.50); %Basophils 0.9 % (0.0-1.0)
[2023-03-16 05:36] LABS: Anion Gap 11 mmol/L (10-20); BUN (Urea Nitrogen) 35 mg/dL (9.8-20.1); Calc. Creatinine Clearance 24 mL/min (70-130); Calcium 8.9 mg/dL (7.8-10.44); Carbon Dioxide 26 mmol/L (23-31); Chloride 104 mmol/L (98-107); Estimated GFR 22; Glucose 93 mg/dL (83-110); Potassium 4.3 mmol/L (3.5-5.1); Sodium 137 mmol/L (136-145)
[2023-03-16] MEDS: Furosemide 40 MG TAB PO SCH (08:37)
[2023-03-16] MEDS: Alogliptin 6.25 MG TAB PO SCH (08:37)
[2023-03-16] MEDS: Aspirin 81 mg Enteric Coated Tablet PO SCH (08:38)
[2023-03-16] MEDS: Sertraline 100 MG TAB PO SCH (08:38)
[2023-03-16] MEDS: Carvedilol 3.125 MG TAB PO SCH ×2 (08:38→21:05)
[2023-03-16] MEDS: Famotidine 20 MG TAB PO SCH (21:05)
[2023-03-16] MEDS: Atorvastatin Calcium 10 MG TAB PO SCH (21:05)
[2023-03-17] MEDS: Carvedilol 3.125 MG TAB PO SCH ×2 (09:00→20:28)
[2023-03-17] MEDS: Alogliptin 6.25 MG TAB PO SCH (09:00)
[2023-03-17] MEDS: Aspirin 81 mg Enteric Coated Tablet PO SCH (09:00)
[2023-03-17] MEDS: Sertraline 100 MG TAB PO SCH (09:00)
[2023-03-17] MEDS: Furosemide 40 MG TAB PO SCH (09:00)
[2023-03-17] MEDS: Atorvastatin Calcium 10 MG TAB PO SCH (20:27)
[2023-03-17] MEDS: Famotidine 20 MG TAB PO SCH (20:28)
[2023-03-18] MEDS: Furosemide 40 MG TAB PO SCH (10:05)
[2023-03-18] MEDS: Alogliptin 6.25 MG TAB PO SCH (10:05)
[2023-03-18] MEDS: Carvedilol 3.125 MG TAB PO SCH (10:06)
[2023-03-18] MEDS: Sertraline 100 MG TAB PO SCH (10:06)
[2023-03-18] MEDS: Aspirin 81 mg Enteric Coated Tablet PO SCH (10:06)
[2023-03-18 12:07] VITALS: BP 103/54; TEMP 97.8
== END 2023-03-18 15:40 | disposition home or self-care (01) | DRG 947 ==
LOC: NAV ACUTE 16:00
PROVIDERS: ADMIT Family Medicine; ATTEND Family Medicine
DX: R53.1 Weakness (principal); U07.1 COVID-19; N17.9 Acute kidney failure, unspecified; I11.0 Hypertensive heart disease with heart failure; I50.9 Heart failure, unspecified; E11.9 Type 2 diabetes mellitus without complications; E78.5 Hyperlipidemia, unspecified; I25.10 Atherosclerotic heart disease of native coronary artery without angina pectoris; M19.90 Unspecified osteoarthritis, unspecified site; I95.9 Hypotension, unspecified; R55 Syncope and collapse; Z90.49 Acquired absence of other specified parts of digestive tract; Z90.710 Acquired absence of both cervix and uterus; Z98.890 Other specified postprocedural states; Z88.0 Allergy status to penicillin; Z88.8 Allergy status to other drugs, medicaments and biological substances
CPT/HCPCS: 36415; 36416; 80048; 80053; 85025; J1650